=== PATIENT | female | born 1945 | race Caucasian/White ===

== ENCOUNTER 2016-08-30 11:04 | Inpatient (IN) | payer MEDICARE, MEDICAID ==
[~2016-08-30] VITALS: Ht 167.6 cm; Wt 67.4 kg
[~2016-08-30 11:04] MED LIST: AMLO10TA2 PO; CLOP75TA28 PO; CLOP75TA41 PO; DULO60CA PO; GLIP-115 PO; HYDR-2595 PO; LIDO5DIS21 TOP; [UNRECOGNIZED DRUG - CODE] PO
[2016-08-30] MEDS ORDERED: LORazepam 2MG/ML-1ML VIAL IV ONE (12:15)
[2016-08-30 12:49] LABS: Basophils # (auto) 0 uL; Eosinophils # (auto) 0.3 uL; Hematocrit 29.1 % (36.0-46.0); Hemoglobin 9.4 g/dL (12.2-16.2); Lymphocytes % (auto) 6.1 % (10.0-50.0); Mean Corpuscular Hemoglobin 28.3 pg (28.0-32.0); Mean Corpuscular Hgb Conc. 32.1 g/dL (32.0-36.0); Mean Corpuscular Volume 87.9 fL (80.0-100.0); Mean Platelet Volume 7.2 fL (7.4-10.4); Monocytes # (auto) 0.9 uL; Monocytes % (auto) 5.8 % (0.0-12.0); Neutrophils % (auto) 86.1 % (37.0-80.0); Platelet Count (auto) 299 10^3/uL (140-450); Red Cell Distribution Width 15.2 % (11.6-16.0); White Blood Cell 16.3 10^3/uL (4.4-10.8)
[2016-08-30 13:04] LABS: INR 1.04 (0.9-1.15); Partial Thromboplastin Time 29.9 sec (22.64-33.71); Prothrombin Time 10.7 sec (9.37-12.3)
[2016-08-30 13:10] LABS: Albumin 2.6 g/dL (3.4-5.0); Bilirubin, Total 0.1 mg/dL (0.2-1.0); Calcium 8.9 mg/dL (8.5-10.1); Potassium 5.1 mmol/L (3.5-5.1); Total Protein 6.3 g/dL (6.4-8.2)
[2016-08-30] MEDS ORDERED: cefTRIAXone 1GM/50ML D5W 50 ML IV ONE (13:15)
[2016-08-30 14:11] LABS: Urine Bilirubin Negative (Negative); Urine Blood 1+ /uL (Negative); Urine Color Yellow (Yellow); Urine Glucose 1+ mg/dL (Normal); Urine Ketone Negative (Negative); Urine Nitrite Negative (Negative); Urine RBC 8 /hpf (0 - 4); Urine Squamous Epithelial Cell FEW /hpf (<5); Urine Urobilinogen Normal (Negative); Urine WBC Clumps PRESENT /hpf (None Seen)
[2016-08-30 14:40] LABS: B-Type Natriuretic Peptide 99.8 pg/mL (0-100)
[2016-08-30] MEDS ORDERED: VANCOMYCIN PER PHARMACY 0 MG IV SCH ×2 (14:45→17:15)
[2016-08-30] MEDS ORDERED: SODIUM CHLORIDE 0.9% 1,000 ML IV ONE (14:45)
[2016-08-30] MEDS ORDERED: ATEN-60 PO (14:56)
[2016-08-30] MEDS ORDERED: LEVO-28 PO (14:56)
[2016-08-30] MEDS ORDERED: VANCOMYCIN 750 MG in D5W 5% 250 ML IV SCH (16:00)
[2016-08-30] MEDS ORDERED: DEXTROSE (50%) 50ML SYRG IV PRN (17:15)
[2016-08-30] MEDS: SODIUM CHLORIDE 0.9% 1,000 ML IV SCH (17:16)
[2016-08-30] MEDS ORDERED: CLOPIDOGREL BISULFATE 75 MG TAB PO ONE (17:30)
[2016-08-30] MEDS ORDERED: MORPHINE SULF INJ 2 MG/ML SYRINGE 1ML IV PRN (17:30)
[2016-08-30] MEDS ORDERED: ONDANSETRON HCL 4 MG/2 ML VIAL IV PRN (17:30)
[2016-08-30] MEDS ORDERED: TEMAZEPAM 15 MG CAP PO PRN (17:30)
[2016-08-30] MEDS ORDERED: DOCUSATE SOD 100 MG CAP PO PRN (17:30)
[2016-08-30] MEDS ORDERED: amLODIPine BESYLATE 5 MG TAB PO ONE (17:30)
[2016-08-30] MEDS ORDERED: DULoxetine HCL 30 MG CAP PO ONE (17:30)
[2016-08-30] MEDS ORDERED: NITROGLYCERIN 0.4 MG SL TAB SL PRN (17:30)
[2016-08-30] MEDS ORDERED: ACETAMINOPHEN 325 MG TAB PO PRN (17:30)
[2016-08-30] MEDS ORDERED: cloNIDine HCL 0.1 MG TAB PO PRN (17:30)
[2016-08-30] MEDS ORDERED: CYANOCOBALAMIN 500 MCG TAB PO ONE (17:30)
[2016-08-30] MEDS: ALBUTEROL SULF 2.5 MG/0.5ML(0.5%) NEB SOLN NEB SCH (18:23)
[2016-08-30] MEDS: IPRATROPIUM BROM 0.5 MG/2.5ML INH SOL NEB SCH (18:23)
[2016-08-30] MEDS: glipiZIDE 5 MG TAB PO SCH (18:51)
[2016-08-30] MEDS: FAMOTIDINE 20 MG TAB PO SCH (18:52)
[2016-08-30] MEDS: methylPREDNISolone SOD SUCC 125 MG/2 ML VL IV SCH (18:53)
[2016-08-30] MEDS: MULTIPLE VITAMIN TAB PO SCH (18:53)
[2016-08-30] MEDS: ENOXAPARIN SOD 30 MG/0.3 ML SYRINGE SC SCH (18:53)
[2016-08-30] MEDS: Boost Glucose Control 8 Ounces PO SCH ×2 (19:02→21:17)
[2016-08-30 19:13] VITALS: BP 160/58
[2016-08-30] MEDS: ACCU-CHEK COMFORT CURVE STRIP VI SCH (22:06)
[2016-08-30] MEDS: InsuLIN REG 1unit/0.01ml Soln (100units/ml) SC SCH (22:08)
[2016-08-31] MEDS: MORPHINE SULF INJ 2 MG/ML SYRINGE 1ML IV PRN (00:26)
[2016-08-31] MEDS: methylPREDNISolone SOD SUCC 125 MG/2 ML VL IV SCH ×4 (00:30→18:18)
[2016-08-31] MEDS: ALBUTEROL SULF 2.5 MG/0.5ML(0.5%) NEB SOLN NEB SCH ×4 (00:30→19:37)
[2016-08-31] MEDS: IPRATROPIUM BROM 0.5 MG/2.5ML INH SOL NEB SCH ×4 (00:30→19:37)
[2016-08-31] MEDS ORDERED: NITROGLYCERIN 0.4 MG SL TAB SL PRN (02:00)
[2016-08-31 02:53] VITALS: BP 148/53
[2016-08-31 05:00] VITALS: BP 142/66
[2016-08-31] MEDS: Boost Glucose Control 8 Ounces PO SCH ×4 (05:55→22:24)
[2016-08-31] MEDS: glipiZIDE 5 MG TAB PO SCH ×2 (06:23→18:20)
[2016-08-31] MEDS: InsuLIN REG 1unit/0.01ml Soln (100units/ml) SC SCH ×4 (06:24→22:00)
[2016-08-31] MEDS: ACCU-CHEK COMFORT CURVE STRIP VI SCH ×4 (06:24→22:24)
[2016-08-31 06:31] LABS: Basophils # (auto) 0 uL; DEFINITIVE VIEW TRANSMISSION; Eosinophils # (auto) 0 uL; Hematocrit 24.4 % (36.0-46.0); Hemoglobin 7.9 g/dL (12.2-16.2); Lymphocytes # (auto) 0.4 uL; Lymphocytes % (auto) 2.8 % (10.0-50.0); Mean Corpuscular Hemoglobin 27.8 pg (28.0-32.0); Mean Corpuscular Hgb Conc. 32.5 g/dL (32.0-36.0); Mean Corpuscular Volume 85.3 fL (80.0-100.0); Mean Platelet Volume 7.5 fL (7.4-10.4); Monocytes # (auto) 0 uL; Monocytes % (auto) 0.2 % (0.0-12.0); Neutrophils # (auto) 12.7 uL; Platelet Count (auto) 266 10^3/uL (140-450); Red Cell Distribution Width 15.9 % (11.6-16.0); White Blood Cell 13.1 10^3/uL (4.4-10.8)
[2016-08-31 06:45] LABS: Albumin 2.5 g/dL (3.4-5.0); Calcium 9.2 mg/dL (8.5-10.1)
[2016-08-31 06:49] LABS: BUN/Creatinine Ratio 39.1; Bilirubin, Total 0.2 mg/dL (0.2-1.0)
[2016-08-31 07:00] LABS: Potassium 5.7 mmol/L (3.5-5.1)
[2016-08-31] MEDS: cefTRIAXone 1GM/50ML D5W 50 ML IV SCH (08:51)
[2016-08-31 08:53] VITALS: BP 152/91
[2016-08-31] MEDS: SODIUM CHLORIDE 0.9% 1,000 ML IV SCH (09:56)
[2016-08-31] MEDS: MULTIPLE VITAMIN TAB PO SCH (10:36)
[2016-08-31] MEDS: DULoxetine HCL 30 MG CAP PO SCH (10:37)
[2016-08-31] MEDS: FAMOTIDINE 20 MG TAB PO SCH (10:37)
[2016-08-31] MEDS: amLODIPine BESYLATE 5 MG TAB PO SCH (10:38)
[2016-08-31] MEDS: CLOPIDOGREL BISULFATE 75 MG TAB PO SCH (10:43)
[2016-08-31] MEDS: CYANOCOBALAMIN 500 MCG TAB PO SCH (10:43)
[2016-08-31] MEDS ORDERED: DEXTROSE (50%) 50ML SYRG IV ONE (12:30)
[2016-08-31] MEDS ORDERED: SODIUM BICARBONATE 8.4% INJ 50ML SYRINGE IV ONE (12:30)
[2016-08-31] MEDS ORDERED: InsuLIN REG 1unit/0.01ml Soln (100units/ml) IV ONE (12:30)
[2016-08-31] MEDS ORDERED: SODIUM POLYSTYRENE SULF 15GM/60ML SUSP PO ONE (12:30)
[2016-08-31 13:00] VITALS: BP 149/58
[2016-08-31 17:00] VITALS: BP 146/69
[2016-08-31] MEDS: ENOXAPARIN SOD 30 MG/0.3 ML SYRINGE SC SCH (18:20)
[2016-08-31 22:00] VITALS: BP 145/60
[2016-09-01] MEDS: methylPREDNISolone SOD SUCC 125 MG/2 ML VL IV SCH ×4 (00:19→18:00)
[2016-09-01] MEDS: SODIUM CHLORIDE 0.9% 1,000 ML IV SCH ×2 (02:36→19:16)
[2016-09-01 05:00] VITALS: BP 152/61
[2016-09-01 05:51] LABS: Basophils # (auto) 0 uL; DEFINITIVE VIEW TRANSMISSION; Eosinophils # (auto) 0 uL; Hematocrit 21.1 % (36.0-46.0); Lymphocytes # (auto) 0.7 uL; Lymphocytes % (auto) 6.8 % (10.0-50.0); Mean Corpuscular Hemoglobin 28.2 pg (28.0-32.0); Mean Corpuscular Volume 85.3 fL (80.0-100.0); Mean Platelet Volume 7.5 fL (7.4-10.4); Monocytes # (auto) 0.3 uL; Monocytes % (auto) 2.8 % (0.0-12.0); Neutrophils # (auto) 9.5 uL; Neutrophils % (auto) 90.4 % (37.0-80.0); Platelet Count (auto) 253 10^3/uL (140-450); Red Cell Distribution Width 16.1 % (11.6-16.0); White Blood Cell 10.6 10^3/uL (4.4-10.8)
[2016-09-01 06:08] LABS: Albumin 2.4 g/dL (3.4-5.0); Potassium 3.8 mmol/L (3.5-5.1)
[2016-09-01 06:11] LABS: BUN/Creatinine Ratio 37.4; Bilirubin, Total 0.2 mg/dL (0.2-1.0); Total Protein 5.5 g/dL (6.4-8.2)
[2016-09-01] MEDS: Boost Glucose Control 8 Ounces PO SCH ×4 (06:18→21:51)
[2016-09-01] MEDS: InsuLIN REG 1unit/0.01ml Soln (100units/ml) SC SCH ×4 (06:24→22:00)
[2016-09-01] MEDS: ALBUTEROL SULF 2.5 MG/0.5ML(0.5%) NEB SOLN NEB SCH ×4 (06:25→19:11)
[2016-09-01] MEDS: IPRATROPIUM BROM 0.5 MG/2.5ML INH SOL NEB SCH ×4 (06:25→19:11)
[2016-09-01] MEDS: glipiZIDE 5 MG TAB PO SCH ×2 (06:55→18:03)
[2016-09-01] MEDS: ACCU-CHEK COMFORT CURVE STRIP VI SCH ×4 (06:55→21:51)
[2016-09-01] MEDS: HYDROcodone-ACET 5/325MG TAB PO PRN ×2 (08:22→13:55)
[2016-09-01] MEDS: DULoxetine HCL 30 MG CAP PO SCH (09:35)
[2016-09-01] MEDS: cefTRIAXone 1GM/50ML D5W 50 ML IV SCH (09:35)
[2016-09-01] MEDS: MULTIPLE VITAMIN TAB PO SCH (09:36)
[2016-09-01] MEDS: CLOPIDOGREL BISULFATE 75 MG TAB PO SCH (09:36)
[2016-09-01] MEDS: amLODIPine BESYLATE 5 MG TAB PO SCH (09:36)
[2016-09-01] MEDS: CYANOCOBALAMIN 500 MCG TAB PO SCH (09:37)
[2016-09-01] MEDS: FAMOTIDINE 20 MG TAB PO SCH (09:37)
[2016-09-01 13:37] VITALS: BP 139/55
[2016-09-01 13:52] VITALS: BP 146/55
[2016-09-01] MEDS ORDERED: FLEET ENEMA(ADULT) 135 ML PR ONE (15:45)
[2016-09-01] MEDS ORDERED: LEVOFLOXACIN 500MG 100 ML IV ONE (16:00)
[2016-09-01 16:41] VITALS: BP 148/59
[2016-09-01 16:54] VITALS: BP 148/59
[2016-09-01 17:10] VITALS: BP 146/56
[2016-09-01] MEDS: ENOXAPARIN SOD 30 MG/0.3 ML SYRINGE SC SCH (18:00)
[2016-09-01] MEDS: POLYETHYLENE GLYCOL 17GM PWDR PO PRN (18:11)
[2016-09-01] MEDS: MORPHINE SULF INJ 2 MG/ML SYRINGE 1ML IV PRN (22:19)
[2016-09-02] MEDS: methylPREDNISolone SOD SUCC 125 MG/2 ML VL IV SCH ×4 (00:10→17:29)
[2016-09-02] MEDS: IPRATROPIUM BROM 0.5 MG/2.5ML INH SOL NEB SCH ×4 (00:41→19:20)
[2016-09-02] MEDS: ALBUTEROL SULF 2.5 MG/0.5ML(0.5%) NEB SOLN NEB SCH ×4 (00:41→19:20)
[2016-09-02 05:00] VITALS: BP 141/63
[2016-09-02 05:49] LABS: Albumin 2.6 g/dL (3.4-5.0); Calcium 8.3 mg/dL (8.5-10.1); Potassium 3.6 mmol/L (3.5-5.1)
[2016-09-02 05:50] LABS: Basophils # (auto) 0 uL; Basophils % (auto) 0.1 % (0.0-2.0); Eosinophils # (auto) 0 uL; Hemoglobin 10.6 g/dL (12.2-16.2); Lymphocytes # (auto) 0.6 uL; Lymphocytes % (auto) 5.2 % (10.0-50.0); Mean Corpuscular Hemoglobin 28.9 pg (28.0-32.0); Mean Corpuscular Hgb Conc. 33.1 g/dL (32.0-36.0); Mean Corpuscular Volume 87.5 fL (80.0-100.0); Mean Platelet Volume 7.4 fL (7.4-10.4); Monocytes # (auto) 0.4 uL; Monocytes % (auto) 3.3 % (0.0-12.0); Neutrophils # (auto) 10.2 uL; Neutrophils % (auto) 91.4 % (37.0-80.0); Platelet Count (auto) 244 10^3/uL (140-450); SUSPECT VIEW TRANSMISSION; White Blood Cell 11.2 10^3/uL (4.4-10.8)
[2016-09-02 05:56] LABS: BUN/Creatinine Ratio 38.5; Bilirubin, Total 0.2 mg/dL (0.2-1.0); Total Protein 5.8 g/dL (6.4-8.2)
[2016-09-02] MEDS: Boost Glucose Control 8 Ounces PO SCH ×4 (06:00→22:00)
[2016-09-02] MEDS: ACCU-CHEK COMFORT CURVE STRIP VI SCH ×4 (06:17→22:00)
[2016-09-02] MEDS: glipiZIDE 5 MG TAB PO SCH ×2 (06:17→17:29)
[2016-09-02] MEDS: InsuLIN REG 1unit/0.01ml Soln (100units/ml) SC SCH ×4 (06:32→22:34)
[2016-09-02 09:00] VITALS: BP 149/76
[2016-09-02] MEDS: LEVOFLOXACIN 250MG 50 ML IV SCH (09:50)
[2016-09-02] MEDS: FAMOTIDINE 20 MG TAB PO SCH (09:51)
[2016-09-02] MEDS: amLODIPine BESYLATE 5 MG TAB PO SCH (09:51)
[2016-09-02] MEDS: MULTIPLE VITAMIN TAB PO SCH (09:51)
[2016-09-02] MEDS: DULoxetine HCL 30 MG CAP PO SCH (09:51)
[2016-09-02] MEDS: CLOPIDOGREL BISULFATE 75 MG TAB PO SCH (09:51)
[2016-09-02] MEDS: CYANOCOBALAMIN 500 MCG TAB PO SCH (09:51)
[2016-09-02] MEDS: SODIUM CHLORIDE 0.9% 1,000 ML IV SCH (11:32)
[2016-09-02] MEDS: POLYETHYLENE GLYCOL 17GM PWDR PO PRN (12:14)
[2016-09-02] MEDS: HYDROcodone-ACET 5/325MG TAB PO PRN (12:14)
[2016-09-02 13:00] VITALS: BP 132/69
[2016-09-02] MEDS ORDERED: FLEET ENEMA(ADULT) 135 ML PR PRN (14:45)
[2016-09-02 16:52] VITALS: BP 141/63
[2016-09-02] MEDS: ENOXAPARIN SOD 30 MG/0.3 ML SYRINGE SC SCH (17:29)
[2016-09-02 22:00] VITALS: BP 141/58
[2016-09-03] MEDS: methylPREDNISolone SOD SUCC 125 MG/2 ML VL IV SCH ×5 (00:24→23:39)
[2016-09-03] MEDS: IPRATROPIUM BROM 0.5 MG/2.5ML INH SOL NEB SCH ×3 (01:13→12:00)
[2016-09-03] MEDS: ALBUTEROL SULF 2.5 MG/0.5ML(0.5%) NEB SOLN NEB SCH ×3 (01:13→12:00)
[2016-09-03] MEDS: SODIUM CHLORIDE 0.9% 1,000 ML IV SCH ×2 (04:36→21:16)
[2016-09-03 05:00] VITALS: BP 135/62
[2016-09-03] MEDS: InsuLIN REG 1unit/0.01ml Soln (100units/ml) SC SCH ×4 (05:54→21:42)
[2016-09-03] MEDS: Boost Glucose Control 8 Ounces PO SCH ×4 (05:59→21:40)
[2016-09-03] MEDS: glipiZIDE 5 MG TAB PO SCH ×2 (05:59→18:24)
[2016-09-03] MEDS: ACCU-CHEK COMFORT CURVE STRIP VI SCH ×4 (05:59→21:40)
[2016-09-03 06:30] LABS: Basophils # (auto) 0 uL; Eosinophils # (auto) 0 uL; Hematocrit 31.4 % (36.0-46.0); Hemoglobin 10.3 g/dL (12.2-16.2); Lymphocytes # (auto) 0.4 uL; Lymphocytes % (auto) 4.6 % (10.0-50.0); Mean Corpuscular Hemoglobin 28.4 pg (28.0-32.0); Mean Corpuscular Hgb Conc. 32.8 g/dL (32.0-36.0); Mean Corpuscular Volume 86.7 fL (80.0-100.0); Mean Platelet Volume 7.2 fL (7.4-10.4); Monocytes # (auto) 0.3 uL; Monocytes % (auto) 3.8 % (0.0-12.0); Neutrophils % (auto) 91.6 % (37.0-80.0); Platelet Count (auto) 260 10^3/uL (140-450); Red Cell Distribution Width 15.3 % (11.6-16.0); White Blood Cell 8.7 10^3/uL (4.4-10.8)
[2016-09-03 06:56] LABS: Calcium 8.3 mg/dL (8.5-10.1); Potassium 3.8 mmol/L (3.5-5.1)
[2016-09-03 07:06] LABS: Albumin 2.6 g/dL (3.4-5.0); BUN/Creatinine Ratio 34.2; Bilirubin, Total 0.2 mg/dL (0.2-1.0); Total Protein 5.5 g/dL (6.4-8.2)
[2016-09-03 09:00] VITALS: BP 149/60
[2016-09-03] MEDS ORDERED: LACTULOSE 20Gm/30ML SOLN PO ONE (09:00)
[2016-09-03] MEDS: LEVOFLOXACIN 250MG 50 ML IV SCH (09:24)
[2016-09-03] MEDS: MULTIPLE VITAMIN TAB PO SCH (09:25)
[2016-09-03] MEDS: CLOPIDOGREL BISULFATE 75 MG TAB PO SCH (09:26)
[2016-09-03] MEDS: CYANOCOBALAMIN 500 MCG TAB PO SCH (09:26)
[2016-09-03] MEDS: FAMOTIDINE 20 MG TAB PO SCH (09:27)
[2016-09-03] MEDS: amLODIPine BESYLATE 5 MG TAB PO SCH (09:27)
[2016-09-03] MEDS: DULoxetine HCL 30 MG CAP PO SCH (10:00)
[2016-09-03 10:31] VITALS: BP 149/60
[2016-09-03] MEDS: HYDROcodone-ACET 5/325MG TAB PO PRN ×2 (12:13→22:20)
[2016-09-03 13:00] VITALS: BP 144/63
[2016-09-03 16:51] VITALS: BP 136/71
[2016-09-03] MEDS: ENOXAPARIN SOD 30 MG/0.3 ML SYRINGE SC SCH (18:24)
[2016-09-03 22:00] VITALS: BP 139/54
[2016-09-04 04:45] VITALS: BP 156/55
[2016-09-04] MEDS: Boost Glucose Control 8 Ounces PO SCH (05:40)
[2016-09-04] MEDS: methylPREDNISolone SOD SUCC 125 MG/2 ML VL IV SCH (05:40)
[2016-09-04] MEDS: InsuLIN REG 1unit/0.01ml Soln (100units/ml) SC SCH (06:32)
[2016-09-04] MEDS: ACCU-CHEK COMFORT CURVE STRIP VI SCH (06:32)
[2016-09-04] MEDS: glipiZIDE 5 MG TAB PO SCH (06:33)
[2016-09-04] MEDS: ALBUTEROL SULF 2.5 MG/0.5ML(0.5%) NEB SOLN NEB SCH (06:45)
[2016-09-04] MEDS: IPRATROPIUM BROM 0.5 MG/2.5ML INH SOL NEB SCH (06:45)
[2016-09-04] MEDS: HYDROcodone-ACET 5/325MG TAB PO PRN (08:43)
[2016-09-04 09:00] VITALS: BP 155/74
[2016-09-04] MEDS: DULoxetine HCL 30 MG CAP PO SCH (10:14)
[2016-09-04] MEDS: CYANOCOBALAMIN 500 MCG TAB PO SCH (10:14)
[2016-09-04] MEDS: FAMOTIDINE 20 MG TAB PO SCH (10:14)
[2016-09-04] MEDS: amLODIPine BESYLATE 5 MG TAB PO SCH (10:15)
[2016-09-04] MEDS: CLOPIDOGREL BISULFATE 75 MG TAB PO SCH (10:15)
[2016-09-04] MEDS: MULTIPLE VITAMIN TAB PO SCH (10:15)
== END 2016-09-04 12:15 | disposition still patient (30) | DRG 871 ==
LOC: EDBD 11:04 → ER 11:07 → TELE 11:08 → TELE-EAST 08-31 02:25
PROVIDERS: ADMIT Internal Medicine; ATTEND Internal Medicine Pulmonary Disease
PROC: 30233N1 Transfusion of Nonautologous Red Blood Cells into Peripheral Vein, Percutaneous Approach (ICD-10-PCS; principal; 2016-09-01)
DX: A41.9 Sepsis, unspecified organism (principal); E43 Unspecified severe protein-calorie malnutrition; G92 Toxic encephalopathy; J96.91 Respiratory failure, unspecified with hypoxia; I63.9 Cerebral infarction, unspecified; J69.0 Pneumonitis due to inhalation of food and vomit; L97.409 Non-pressure chronic ulcer of unspecified heel and midfoot with unspecified severity; N39.0 Urinary tract infection, site not specified; N18.4 Chronic kidney disease, stage 4 (severe); J44.0 Chronic obstructive pulmonary disease with (acute) lower respiratory infection; I12.9 Hypertensive chronic kidney disease with stage 1 through stage 4 chronic kidney disease, or unspecified chronic kidney disease; D63.8 Anemia in other chronic diseases classified elsewhere; E11.22 Type 2 diabetes mellitus with diabetic chronic kidney disease; E11.621 Type 2 diabetes mellitus with foot ulcer; K59.00 Constipation, unspecified; E87.5 Hyperkalemia; F17.210 Nicotine dependence, cigarettes, uncomplicated; F32.9 Major depressive disorder, single episode, unspecified; F41.9 Anxiety disorder, unspecified; I25.10 Atherosclerotic heart disease of native coronary artery without angina pectoris; J44.9 Chronic obstructive pulmonary disease, unspecified; J45.909 Unspecified asthma, uncomplicated; Z90.49 Acquired absence of other specified parts of digestive tract; Z68.24 Body mass index [BMI] 24.0-24.9, adult; Z82.49 Family history of ischemic heart disease and other diseases of the circulatory system
CPT/HCPCS: 36415; 36600; 70450; 71010; 80053; 81001; 82805; 83036; 83605; 83735; 83880; 84132; 84484; 85025; 85379; 85610; 85730; 86850; 86900; 86901; 86920; 87040; 87086; 87088; 87186; 92610; 93005; 93306; 93886; 93970; 94640; 96365; 96366; 96375; 97001; 97530; G0434; J0696; J1815; J1956; J7060

== ENCOUNTER 2016-09-22 04:59 | Emergency (ER) | payer MEDICARE, MEDICAID ==
[~2016-09-22] VITALS: Ht 165.1 cm; Wt 74.8 kg
[~2016-09-22 04:59] MED LIST changes: +ATEN-60 PO; -CLOP75TA28 PO; -DULO60CA PO; -LIDO5DIS21 TOP; -[UNRECOGNIZED DRUG - CODE] PO
[2016-09-22] MEDS ORDERED: MIDAZOLAM DRIP 100 mg/100mL NS 100 ML IV SCH ×2 (05:15→06:00)
[2016-09-22] MEDS ORDERED: MIDAZOLAM DRIP 100 mg/100mL NS 100 ML IV ONE (05:24)
[2016-09-22] MEDS ORDERED: PANTOPRAZOLE SODIUM 40 MG/10 ML VIAL IV ONE (05:30)
[2016-09-22] MEDS ORDERED: SODIUM CHLORIDE 0.9% 1,000 ML IV ONE (05:30)
[2016-09-22 05:57] LABS: Basophils # (auto) 0 uL; Basophils % (auto) 0.1 % (0.0-2.0); Eosinophils # (auto) 0 uL; Eosinophils % (auto) 0.1 % (0.0-7.0); Hematocrit 29.8 % (36.0-46.0); Hemoglobin 9.5 g/dL (12.2-16.2); Lymphocytes # (auto) 1.6 uL; Lymphocytes % (auto) 13.6 % (10.0-50.0); Mean Corpuscular Hemoglobin 28.2 pg (28.0-32.0); Mean Corpuscular Hgb Conc. 31.9 g/dL (32.0-36.0); Mean Corpuscular Volume 88.5 fL (80.0-100.0); Monocytes # (auto) 0.8 uL; Monocytes % (auto) 6.7 % (0.0-12.0); Neutrophils # (auto) 9.1 uL; Neutrophils % (auto) 79.5 % (37.0-80.0); Platelet Count (auto) 231 10^3/uL (140-450); Red Cell Distribution Width 15.5 % (11.6-16.0); White Blood Cell 11.5 10^3/uL (4.4-10.8)
[2016-09-22] MEDS ORDERED: ATROPINE SULF 0.5 MG/5ML SYR IV ONE ×2 (06:00→08:55)
[2016-09-22 06:04] LABS: Lactic Acid 8.2 mmol/L (0.4-2.0)
[2016-09-22] MEDS ORDERED: SODIUM BICARBONATE 8.4 % INJ 50ML VIAL IV ONE ×2 (06:09→06:24)
[2016-09-22 06:13] LABS: Albumin 1.3 g/dL (3.4-5.0); BUN/Creatinine Ratio 26.7; Bilirubin, Total 0.3 mg/dL (0.2-1.0); Calcium 7.7 mg/dL (8.5-10.1); Magnesium 2.8 mg/dL (1.6-2.6); Total Protein 4.4 g/dL (6.4-8.2)
[2016-09-22] MEDS ORDERED: DOPamine 1600MCG/ML 250 ML IV ONE (06:15)
[2016-09-22] MEDS ORDERED: SODIUM BICARBONATE 50ML VIAL 100 ML in D5W 5% 1,000 ML IV ONE (06:15)
[2016-09-22 06:16] LABS: INR 1.3 (0.9-1.15); Partial Thromboplastin Time 36.3 sec (22.64-33.71); Prothrombin Time 13.4 sec (9.37-12.3)
[2016-09-22 06:20] LABS: Potassium 5.7 mmol/L (3.5-5.1)
[2016-09-22 06:22] LABS: REFLEX LACTIC ACID YES OR NO YES
[2016-09-22] MEDS ORDERED: NOREPINEPHRINE BITARTRATE 250 ML IV ONE (06:37)
[2016-09-22] MEDS ORDERED: EPINEPHrine HCL 250 ML IV SCH (07:00)
[2016-09-22] MEDS ORDERED: EPINEPHrine HCL INJECTION 4 MG in D5W 5% 250 ML IV ONE (07:00)
[2016-09-22] MEDS ORDERED: NOREPINEPHRINE BITARTRATE 250 ML IV SCH (07:15)
[2016-09-22 07:16] VITALS: BP 130/32
[2016-09-22] MEDS ORDERED: PIPERACILLIN-TAZOB 3.375GM 100 ML IV ONE (07:30)
[2016-09-22] MEDS ORDERED: CLINDAMYCIN 600MG IV 50 ML IV ONE (07:30)
[2016-09-22] MEDS ORDERED: PANTOPRAZOLE SODIUM 80 MG in SODIUM CHL 0.9% 60 ML IV ONE (07:30)
[2016-09-22] MEDS ORDERED: EPINEPHrine HCL 1 MG/10 ML SYRG IV ONE (08:55)
[2016-09-22] MEDS ORDERED: CALCIUM CHLOR(10%) 100MG/ML 10ML SYRINGE IV ONE (08:55)
[2016-09-22] MEDS ORDERED: DOPamine 1600MCG/ML 400MG/250ML PREMIX BAG IV ONE (08:55)
[2016-09-22] MEDS ORDERED: SODIUM BICARBONATE 8.4% INJ 50ML SYRINGE IV ONE (08:55)
== END 2016-09-22 07:33 | disposition expired ==
LOC: EDBD 04:59 → ER 05:01
DX: I46.9 Cardiac arrest, cause unspecified (principal); R41.82 Altered mental status, unspecified; K92.0 Hematemesis; I12.9 Hypertensive chronic kidney disease with stage 1 through stage 4 chronic kidney disease, or unspecified chronic kidney disease; N18.9 Chronic kidney disease, unspecified; J44.9 Chronic obstructive pulmonary disease, unspecified; E11.9 Type 2 diabetes mellitus without complications; J96.91 Respiratory failure, unspecified with hypoxia; F17.210 Nicotine dependence, cigarettes, uncomplicated; Z90.49 Acquired absence of other specified parts of digestive tract; Z86.73 Personal history of transient ischemic attack (TIA), and cerebral infarction without residual deficits
CPT/HCPCS: 31500; 36415; 36600; 71010; 80053; 82805; 83605; 83735; 84484; 85025; 85049; 85379; 85610; 85730; 87040; 92950; 93005; 94002; 96361; 96374; 96375; 99291; C9113; J0171; J0461; J1265; J3490; J7030; J7060